=== PATIENT | female | born 1950 | race Caucasian/White ===

== ENCOUNTER → 2019-08-03 | Outpatient (CLI) | payer MEDICARE, BC ==
[~2019-08-03] MED LIST: GARAMYCIN5 ML OP; MEDROLDOSEPACK PO; NOHOMEMEDICATIONS; TESSALON PERLE100 MG PO; ZPAK PO
== END ==
LOC: M.RAD 15:30
DX: Z12.31 Encounter for screening mammogram for malignant neoplasm of breast (principal)

== ENCOUNTER → 2019-08-10 | Outpatient (CLI) | payer MEDICARE, BC | LOC: M.ULTRA 09:46 | DX: N63.10 Unspecified lump in the right breast, unspecified quadrant (principal) ==